=== PATIENT | female | born 1990 | race Caucasian/White ===

== ENCOUNTER 2024-11-14 19:20 | Emergency (ER) | payer OTHER ==
[~2024-11-14] VITALS: Ht 170.2 cm; Wt 70.3 kg
[2024-11-14] MEDS ORDERED: MUPI22OI7 TP (19:47)
[2024-11-14 19:57] VITALS: BP 110/77; TEMP 98.5; O2SAT 97
== END 2024-11-14 19:57 | disposition home or self-care (01) ==
LOC: ER 19:32
DX: T21.02XA Burn of unspecified degree of abdominal wall, initial encounter (principal); X10.2XXA Contact with fats and cooking oils, initial encounter; Y93.G3 Activity, cooking and baking; Y92.090 Kitchen in other non-institutional residence as the place of occurrence of the external cause; Y99.8 Other external cause status